=== PATIENT | female | born 1950 | race Caucasian/White ===

== ENCOUNTER 2023-03-31 12:53 | Outpatient (CLI) | payer MEDICARE, BC, SELFPAY | END 2023-03-31 12:54 | disposition home or self-care (01) | PROVIDERS: PCP Internal Medicine; Visit Provider Nurse Practitioner Family | DX: I87.311 Chronic venous hypertension (idiopathic) with ulcer of right lower extremity (principal); L97.212 Non-pressure chronic ulcer of right calf with fat layer exposed; I89.0 Lymphedema, not elsewhere classified; R73.03 Prediabetes | CPT/HCPCS: 11042; 99213 ==

== ENCOUNTER 2023-04-06 10:03 | Outpatient (CLI) | payer MEDICARE, BC, SELFPAY | END 2023-04-06 10:04 | disposition home or self-care (01) | LOC: WOUND 10:04 | PROVIDERS: PCP Internal Medicine; Visit Provider Surgery | DX: I87.311 Chronic venous hypertension (idiopathic) with ulcer of right lower extremity (principal); L97.812 Non-pressure chronic ulcer of other part of right lower leg with fat layer exposed; I89.0 Lymphedema, not elsewhere classified | CPT/HCPCS: 97597 ==

== ENCOUNTER 2023-04-14 13:01 | Outpatient (CLI) | payer MEDICARE, BC, SELFPAY | END 2023-04-14 13:02 | disposition home or self-care (01) | LOC: WOUND 13:02 | PROVIDERS: PCP Internal Medicine; Visit Provider Nurse Practitioner Family | DX: I87.311 Chronic venous hypertension (idiopathic) with ulcer of right lower extremity (principal); L97.812 Non-pressure chronic ulcer of other part of right lower leg with fat layer exposed; I89.0 Lymphedema, not elsewhere classified | CPT/HCPCS: 97597 ==

== ENCOUNTER 2023-04-15 14:47 | Outpatient (CLI) | payer MEDICARE, BC, SELFPAY ==
--- NOTE | 2023-04-15 | CRLHL7_ITS ---
For Patients: As a result of the Century Cures Act, medical imaging exams and procedure reports are released immediately into your electronic medical record. You may view this report before your referring provider. If you have questions, please contact your health care provider. INDICATION: LEG PAIN, NON HEALING WOUND TECHNIQUE: Bilateral lower extremity arterial duplex ultrasound with color Doppler and spectral waveform analysis. COMPARISON: None. FINDINGS: Multiple sonographic riley-scale images demonstrate atherosclerotic plaque in both lower extremities. Right leg: Systolic velocities are within normal limits. Color Doppler and spectral waveform analysis demonstrates triphasic/biphasic waveforms are demonstrated throughout with the exception of monophasic flow in the anterior tibial artery. Left leg: Systolic velocities are mildly elevated within the mid femoral artery measuring 173 cm/second. Normal velocities elsewhere. Color Doppler and spectral waveform analysis demonstrates triphasic biphasic waveforms are demonstrated throughout. IMPRESSION: Bilateral atherosclerosis in the lower extremity arteries. 30-49 percent stenosis within the left mid femoral artery. Monophasic flow within the right anterior tibial artery secondary to diffuse atherosclerosis without significant stenosis. Dictated by Johnathon Guido MD @ 04/18/2023 8:52:46 AM (Electronically Signed)
== END 2023-04-15 14:48 | disposition home or self-care (01) ==
LOC: US 14:48
PROVIDERS: PCP Internal Medicine; Visit Provider Nurse Practitioner Family
DX: M79.606 Pain in leg, unspecified (principal); I70.203 Unspecified atherosclerosis of native arteries of extremities, bilateral legs; I70.202 Unspecified atherosclerosis of native arteries of extremities, left leg
CPT/HCPCS: 93926

== ENCOUNTER 2023-04-20 11:02 | Outpatient (CLI) | payer MEDICARE, BC, SELFPAY | END 2023-04-20 11:03 | disposition home or self-care (01) | LOC: WOUND 11:02 | PROVIDERS: PCP Internal Medicine; Visit Provider Surgery | DX: I87.311 Chronic venous hypertension (idiopathic) with ulcer of right lower extremity (principal); L97.812 Non-pressure chronic ulcer of other part of right lower leg with fat layer exposed; I89.0 Lymphedema, not elsewhere classified; R73.03 Prediabetes | CPT/HCPCS: 97597; 99212 ==

== ENCOUNTER 2023-04-28 12:55 | Outpatient (CLI) | payer MEDICARE, BC, SELFPAY | END 2023-04-28 12:56 | disposition home or self-care (01) | LOC: WOUND 12:55 | PROVIDERS: PCP Internal Medicine; Visit Provider Nurse Practitioner Family | DX: I87.311 Chronic venous hypertension (idiopathic) with ulcer of right lower extremity (principal); L97.812 Non-pressure chronic ulcer of other part of right lower leg with fat layer exposed; I89.0 Lymphedema, not elsewhere classified; R73.03 Prediabetes | CPT/HCPCS: 97597 ==

== ENCOUNTER 2023-04-28 15:09 | Outpatient (CLI) | payer MEDICARE, BC, SELFPAY ==
--- NOTE | 2023-04-28 15:00 | CRLHL7_ITS ---
For Patients: As a result of the Cures Act, medical imaging exams and procedure reports are released immediately into your electronic medical record. You may view this report before your referring provider. If you have questions, please contact your health care provider. ULTRASOUND RIGHT LOWER EXTREMITY VENOUS INSUFFICIENCY STUDY, 04/28/2023 CLINICAL HISTORY: nonhealing right lower extremity wound. History of prior PE and DVT. TECHNIQUE: The right lower extremity veins were examined with riley-scale ultrasound, color-flow and Doppler spectral analysis. Compressibility of the veins by transducer pressure was used to evaluate the presence or absence of DVT/SVT at sites per exam specific protocol. Assessment of venous competence was performed by Doppler spectral analysis and was performed and documented at exam specific sites in an upright position for venous insufficiency studies. COMPARISON: None. FINDINGS: RIGHT DEEP SYSTEM: CFV: Competent. SFV Proximal: Competent. SFV Mid: Competent. SFV Distal: Competent. 0.1 seconds. Pop: Incompetent. 1.1 seconds. PTV1: Competent. PTV2: Competent. RIGHT SUPERFICIAL SYSTEM: SFJ: Competent. 6 mm. GSV Thigh Proximal: Competent. 4 mm. GSV Thigh Mid: Competent. 4 mm. GSV Thigh Distal: Competent. 4 mm. GSV Calf Proximal: Competent. 4 mm. GSV Calf Mid: Competent. 0.3 seconds. GSV Calf Distal: Competent. LSV Proximal: Competent. LSV Mid: Competent. There is no evidence of DVT in the right lower extremity. The deep venous system is compressible with augmentation of flow post-compression. Phasic flow is identified. Mild deep venous incompetence is noted in the right popliteal vein (reflux duration 1.1 seconds). No evidence of significant superficial venous incompetence is noted in the right lower extremity. IMPRESSION: 1. No evidence of DVT in the right lower extremity. Mild deep venous incompetence in the right popliteal vein. 2. No evidence of significant superficial venous incompetence in the right lower extremity. KISHA ERICKSON M.D. [email or web address] Transcribed: 3:[address]/Dictated by: Kisha Erickson MD @ 04/29/2023 12:44:00 PM (Electronically Signed)
== END 2023-04-28 15:10 | disposition home or self-care (01) ==
LOC: US 15:10
PROVIDERS: PCP Internal Medicine; Visit Provider Surgery
DX: I87.311 Chronic venous hypertension (idiopathic) with ulcer of right lower extremity (principal); I87.309 Chronic venous hypertension (idiopathic) without complications of unspecified lower extremity
CPT/HCPCS: 93971; 97597

== ENCOUNTER 2023-05-05 12:57 | Outpatient (CLI) | payer MEDICARE, BC, SELFPAY | END 2023-05-05 12:58 | disposition home or self-care (01) | LOC: WOUND 12:57 | PROVIDERS: PCP Internal Medicine; Visit Provider Nurse Practitioner Family | DX: I87.311 Chronic venous hypertension (idiopathic) with ulcer of right lower extremity (principal); L97.812 Non-pressure chronic ulcer of other part of right lower leg with fat layer exposed; I89.0 Lymphedema, not elsewhere classified; R73.03 Prediabetes | CPT/HCPCS: 97597 ==

== ENCOUNTER 2023-05-26 09:14 | Outpatient (CLI) | payer MEDICARE, BC, SELFPAY | END 2023-05-26 09:15 | disposition home or self-care (01) | LOC: WOUND 09:14 | PROVIDERS: PCP Internal Medicine; Visit Provider Nurse Practitioner Family | DX: I87.311 Chronic venous hypertension (idiopathic) with ulcer of right lower extremity (principal); L97.812 Non-pressure chronic ulcer of other part of right lower leg with fat layer exposed; I89.0 Lymphedema, not elsewhere classified; R73.03 Prediabetes | CPT/HCPCS: 97597 ==

== ENCOUNTER 2023-06-09 10:09 | Outpatient (CLI) | payer MEDICARE, BC, SELFPAY | END 2023-06-09 10:10 | disposition home or self-care (01) | LOC: WOUND 10:09 | PROVIDERS: PCP Internal Medicine; Visit Provider Nurse Practitioner Family | DX: I87.311 Chronic venous hypertension (idiopathic) with ulcer of right lower extremity (principal); L97.812 Non-pressure chronic ulcer of other part of right lower leg with fat layer exposed; I89.0 Lymphedema, not elsewhere classified | CPT/HCPCS: 97597 ==

== ENCOUNTER 2023-06-30 10:12 | Outpatient (CLI) | payer MEDICARE, BC, SELFPAY | END 2023-06-30 10:13 | disposition home or self-care (01) | LOC: WOUND 10:12 | PROVIDERS: PCP Internal Medicine; Visit Provider Nurse Practitioner Family | DX: I87.311 Chronic venous hypertension (idiopathic) with ulcer of right lower extremity (principal); L97.812 Non-pressure chronic ulcer of other part of right lower leg with fat layer exposed | CPT/HCPCS: 97597 ==